=== PATIENT | male | born 2000 | race Caucasian/White ===

== ENCOUNTER 2019-01-31 16:43 | Emergency (ER) | payer BC ==
[2019-01-31] MEDS ORDERED: Bacitracin Oint 1 GM U/D Packet TOP ONE (17:12)
--- NOTE | 2019-01-31 17:13 | EDM.PDOC ---
ED HPI GENERAL MEDICAL PROBLEM - General Chief Complaint: Laceration Stated Complaint: HAND INJURY Time Seen by Provider: 01/31/19 17:06 - History of Present Illness INITIAL COMMENTS - FREE TEXT/NARRATIVE: HISTORY AND PHYSICAL: History of present illness: The patient is a healthy 18-year-old man who is up-to-date on his tetanus and presents with complaints of pain and a small laceration to the webspace of his right hand between digits 4 and 5 that occurred while he was playing baseball. He says that baseball hit his fifth digit and pushed it in the ulnar direction and now it feels swollen and like it is jammed. He is able to range of motion flex and extend the digit and he has no proximal hand wrist forearm or elbow pain. The patient is right-hand dominant. Prior to these events patient was in his usual state of good health with no systemic issues. Review of systems: As per history of present illness and below otherwise all systems reviewed and negative. Past medical history: As per history of present illness and as reviewed below otherwise noncontributory. Surgical history: As per history of present illness and as reviewed below otherwise noncontributory. Social history: No reported history of drug or alcohol abuse. Family history: As per history of present illness and as reviewed below otherwise noncontributory. Physical exam: General: Well-developed well-nourished man who is nontoxic and vital signs are noted by me HEENT: Atraumatic, normocephalic, negative for conjunctival pallor or scleral icterus, mucous membranes moist, throat clear, neck supple, nontender, trachea midline. Lungs: Clear to auscultation, breath sounds equal bilaterally, chest nontender. Heart: S1S2, regular rate and rhythm no overt murmurs Abdomen: Soft, nondistended, nontender. Pelvis: Deferred Genitourinary: Deferred. Rectal: Deferred. Extremities: Atraumatic, and full range of motion of all extremities including the right hand and right digits. At the right fifth digit there is some mild tenderness to the proximal and middle calyces without bony defects or deformities and there is no tenderness of the fifth metacarpal joint. There are 2 small lacerations at the base of the fifth digit on the palmar surface, the first is only 2 mm in length and is very superficial and the second is approximately 1 cm in length and extends just barely to the subcutaneous tissue. It originates in the webspace and continues along the base of the fifth proximal phalanx. There is no bleeding and no tenderness or surrounding swelling or ecchymosis. Patient can flex and extend against resistance at the fifth digit. There are no other lacerations bony tenderness defects or deformities of the other digits or of the hand. Neurovascular unremarkable. Neuro: Awake, alert, oriented. Cranial nerves II through XII unremarkable. Cerebellum unremarkable. Motor and sensory unremarkable throughout. Exam nonfocal. Diagnostics: X-ray right hand attention fifth digit Therapeutics: Irrigation and cleansing of lacerations, Dermabond, jaden tape digits 4 and 5 Procedure note: After the wound was cleansed by nursing a small amount of Dermabond was applied to the laceration to reapproximate the skin edges and the fingers were jaden taped. The patient tolerated the procedure well and there were no complications. Prior to doing this we did have a dialogue about several options for this wound including placing of sutures or Dermabond. The patient is aware that because of the nature of the injury that the finger should be jaden taped and reevaluated by a hand specialist as the tendons may have been injured in that abnormal movement. He is aware and will be given that referral. Impression: Blunt trauma of right fifth digit/hand with small lacerations Definitive disposition and diagnosis as appropriate pending reevaluation and review of above. right hand Pain Score (Numeric/FACES): 1 - Related Data Allergies Allergy/AdvReac Type Severity Reaction Status Date / Time No Known Allergies Allergy Verified 01/31/19 17:01 Home Meds: Home Meds . [No Known Home Meds] 01/31/19 [History] Past Medical History - Infectious Disease History Infectious Disease History: Reports: None - Past Surgical History HEENT Surgical History: Reports: Oral Surgery Social & Family History - Family History Family Medical History: Noncontributory - Tobacco Use Smoking Status *Q: Never Smoker - Recreational Drug Use Recreational Drug Use: No ED ROS GENERAL - Review of Systems Review Of Systems: ROS reveals no pertinent complaints other than HPI. ED EXAM, SKIN/RASH Exam: See Below (See dictation) Course - Vital Signs Last Recorded V/S: Last Vital Signs Temp 36.4 C 01/31/19 17:02 Pulse 89 01/31/19 17:02 Resp 18 01/31/19 17:02 BP 112/61 01/31/19 17:02 Pulse Ox 98 01/31/19 17:02 - Orders/Labs/Meds Orders: Active Orders 24 hr Category Date Time Status Communication Order [RC] STAT Care 01/31/19 17:12 Active Communication Order [RC] STAT Care 01/31/19 18:20 Ordered Hand Comp Min 3V Rt [CR] Stat Exams 01/31/19 17:12 Taken Meds: Medications Discontinued Medications Generic Name Dose Route Start Last Admin Trade Name Mikhail PRN Reason Stop Dose Admin Bacitracin 1 dose 01/31/19 17:12 01/31/19 18:13 Bacitracin Oint 1 Gm TOP 01/31/19 17:13 Not Given ONETIME ONE Octyl Cyanoacrylate 1 applic 01/31/19 17:50 01/31/19 18:18 Dermabond Advance TOP 01/31/19 17:51 1 applic ONETIME ONE Administration Departure - Departure Time of Disposition: 18:21 Disposition: Home, Self-Care 01 Condition: Good Clinical Impression: Laceration of finger Qualifiers: Encounter type: initial encounter Finger: little finger Damage to nail status: without damage Foreign body presence: without foreign body Laterality: right Qualified Code(s): S61.216A - Laceration without foreign body of right little finger without damage to nail, initial encounter Finger injury Qualifiers: Encounter type: initial encounter Laterality: right Qualified Code(s): S69.91XA - Unspecified injury of right wrist, hand and finger(s), initial encounter - Discharge Information Referrals: PCP,Unknown [Primary Care Provider] - Forms: ED Department Discharge Additional Instructions: The following information is given to patients seen in the emergency department who are being discharged to home. This information is to outline your options for follow-up care. We provide all patients seen in our emergency department with a follow-up referral. The need for follow-up, as well as the timing and circumstances, are variable depending upon the specifics of your emergency department visit. If you don't have a primary care physician on staff, we will provide you with a referral. We always advise you to contact your personal physician following an emergency department visit to inform them of the circumstance of the visit and for follow-up with them and/or the need for any referrals to a consulting specialist. The emergency department will also refer you to a specialist when appropriate. This referral assures that you have the opportunity for followup care with a specialist. All of these measure are taken in an effort to provide you with optimal care, which includes your followup. Under all circumstances we always encourage you to contact your private physician who remains a resource for coordinating your care. When calling for followup care, please make the office aware that this follow-up is from your recent emergency room visit. If for any reason you are refused follow-up, please contact the [facility] emergency department at and ask to speak to the emergency department charge nurse. Dr. Luis Felipe Valecnia [facility] [address] [facility] [id number] @ Dr Beltre & Dr Pena [facility] [address] [facility] [id number] @ Dr Mcginnis [facility] [address] [facility] [id number] Please leave the splint that was placed on your fingers and to you're followed up by the hand specialist or at least 5 days. Ice to area and elevate. Do not apply any ointment to the laceration as this will dissolve the glue. Please call and schedule a follow-up appointment with one of our hand specialist using resources given to above and return to ER as needed and as discussed - My Orders Last 24 Hours: My Active Orders 01/31/19 17:12 Communication Order [RC] STAT Hand Comp Min 3V Rt [CR] Stat 01/31/19 18:20 Communication Order [RC] STAT - Assessment/Plan Last 24 Hours: My Active Orders 01/31/19 17:12 Communication Order [RC] STAT Hand Comp Min 3V Rt [CR] Stat 01/31/19 18:20 Communication Order [RC] STAT
[2019-01-31] MEDS ORDERED: Octyl 2-Cyanoacrylate 1 Tube TOP ONE (17:50)
--- NOTE | 2019-01-31 18:21 | CR ---
INDICATION: Trauma. TECHNIQUE: Three views of the right hand. COMPARISON: None. IMPRESSION: No fracture is identified. No subluxation or dislocation. Dictated by Riaz White MD @ 01/31/2019 6:20:21 PM Dictated by: Riaz White MD @ 01/31/2019 18:20:28 (Electronically Signed)
== END 2019-01-31 18:32 | disposition home or self-care (01) ==
LOC: MW.ED 16:43
DX: S61.216A Laceration without foreign body of right little finger without damage to nail, initial encounter (principal); W21.03XA Struck by baseball, initial encounter; Y93.64 Activity, baseball
CPT/HCPCS: 12001; 73130; 99283; A9270